=== PATIENT | male | born 1960 | race Caucasian/White ===

== ENCOUNTER 2025-09-08 05:54 | Inpatient (IN) ==
[2025-09-08] MEDS ORDERED: IOPAMIDOL 50 ML BOTTLE IV ONE (05:55)
[2025-09-08] MEDS: IPRATROPIUM/ALBUTEROL 3 ML AMPUL.NEB NEB ONE ×2 (06:15→06:19)
[2025-09-08] MEDS: 0.9 % SODIUM CHLORIDE 1,000 ML IV ONE (06:19)
[2025-09-08] MEDS: ACETAMINOPHEN 1,000 MG/100 ML BAG IV ONE (06:25)
[2025-09-08 06:49] LABS: Basophils # (Auto) 0.01 K/mcL (0.00-0.30); Basophils % (Auto) 0.1 % (0.0-2.0); Eosinophils # (Auto) 0.11 K/mcL (0.00-0.70); Eosinophils % (Auto) 0.7 % (0.0-7.0); Hematocrit 49.6 % (40.1-51.0); Hemoglobin 15.5 g/dL (13.7-17.5); Lymphocytes # (Auto) 1.51 K/mcL (1.50-4.80); Lymphocytes % (Auto) 10.2 % (15.5-49.0); Mean Corpuscular HGB Conc 31.3 g/dL (31.0-36.0); Monocytes # (Auto) 0.36 K/mcL (0.10-0.90); Monocytes % (Auto) 2.4 % (1.0-12.0); Neutrophils % (Auto) 86.4 % (38.0-78.0); Platelet Count 216 K/mcL (140-440); RBC 6.00 M/mcL (4.63-6.08); WBC 14.8 K/mcL (4.5-11.0)
[2025-09-08 06:53] LABS: ALT/SGPT 18 U/L (<40); AST/SGOT 21 U/L (<40); Albumin 4.1 gm/dL (3.2-5.2); Albumin/Globulin Ratio 1.5 (1.0-2.3); Alkaline Phosphatase 77 U/L (39-117); Anion Gap 13.0 (8.0-16.0); Bilirubin,Total 0.8 mg/dL (0.1-1.0); Blood Urea Nitrogen 16 mg/dL (8-23); Calcium 9.2 mg/dL (8.6-10.4); Carbon Dioxide 30 mmol/L (22-30); Chloride 95 mmol/L (96-108); Globulin 2.7 gm/dL (2.2-3.7); Glucose 113 mg/dL (70-105); Potassium 3.8 mmol/L (3.3-5.1); Sodium 138 mmol/L (133-145)
[2025-09-08] MEDS: cefTRIAXone 2 GM in DEXTROSE 5% IN WATER 50 ML IV ONE (07:21)
[2025-09-08] MEDS: AZITHROMYCIN 500 MG in DEXTROSE 5% IN WATER 250 ML IV ONE (07:51)
[2025-09-08] MEDS: 0.9 % SODIUM CHLORIDE 2,260 ML IV ONE (07:53)
[2025-09-08] MEDS ORDERED: DEXTROSE 31 GM ORAL.SUSP PO PRN (12:19)
[2025-09-08] MEDS ORDERED: SENNOSIDES 1 TABLET PO PRN (12:19)
[2025-09-08] MEDS ORDERED: POTASSIUM CHLORIDE 40 MEQ in DEXTROSE 5% IN WATER 500 ML IV PRN (12:19)
[2025-09-08] MEDS ORDERED: DEXTROSE 50% 50 ML VIAL IV PRN (12:19)
[2025-09-08] MEDS ORDERED: MAGNESIUM SULFATE 2 GM/50 ML BAG IV PRN (12:19)
[2025-09-08] MEDS ORDERED: ACETAMINOPHEN 325 MG TABLET PO PRN (12:19)
[2025-09-08] MEDS ORDERED: POLYETHYLENE GLYCOL 3350 17 GM PACKET PO PRN (12:19)
[2025-09-08] MEDS ORDERED: POTASSIUM CHLORIDE 20 MEQ TABLET PO PRN ×2 (12:19)
[2025-09-08] MEDS ORDERED: ONDANSETRON 4 MG/2 ML VIAL IV PRN (12:19)
[2025-09-08] MEDS ORDERED: METOCLOPRAMIDE 10 MG/2 ML VIAL IV PRN (12:19)
[2025-09-08] MEDS: INSULIN LISPRO 1 UNIT/0.01 ML UNIT SQ SCH (12:28)
[2025-09-08] MEDS: IPRATROPIUM/ALBUTEROL 3 ML AMPUL.NEB NEB SCH (12:34)
[2025-09-08] MEDS: 0.9 % SODIUM CHLORIDE 10 ML SYRINGE IV SCH (17:52)
[2025-09-08] MEDS: BUDESONIDE 0.5 MG/2 ML AMPUL.NEB NEB SCH (19:18)
[2025-09-08] MEDS: BUDESONIDE 0.5 MG/2 ML AMPUL.NEB ONE (21:14)
[2025-09-08] MEDS: DOCUSATE SODIUM 100 MG CAPSULE PO SCH (21:24)
[2025-09-08] MEDS: PRIMIDONE 50 MG TABLET PO SCH (21:35)
[2025-09-08] MEDS: ENOXAPARIN 40 MG/0.4 ML SYRINGE SQ SCH (21:35)
[2025-09-08] MEDS: CHLORTHALIDONE 25 MG TABLET PO SCH (21:35)
[2025-09-08] MEDS: SIMVASTATIN 20 MG TABLET PO SCH (21:35)
[2025-09-09 06:03] LABS: Basophils # (Auto) 0.01 K/mcL (0.00-0.30); Basophils % (Auto) 0 % (0.0-2.0); Eosinophils # (Auto) 0 K/mcL (0.00-0.70); Eosinophils % (Auto) 0 % (0.0-7.0); Hematocrit 42.6 % (40.1-51.0); Hemoglobin 13.5 g/dL (13.7-17.5); Lymphocytes # (Auto) 0.51 K/mcL (1.50-4.80); Lymphocytes % (Auto) 2.4 % (15.5-49.0); Mean Corpuscular HGB Conc 31.7 g/dL (31.0-36.0); Monocytes # (Auto) 0.27 K/mcL (0.10-0.90); Monocytes % (Auto) 1.3 % (1.0-12.0); Neutrophils % (Auto) 95.9 % (38.0-78.0); Platelet Count 178 K/mcL (140-440); RBC 5.21 M/mcL (4.63-6.08); WBC 21.1 K/mcL (4.5-11.0)
[2025-09-09 06:27] LABS: ALT/SGPT 16 U/L (<40); AST/SGOT 17 U/L (<40); Albumin 3.6 gm/dL (3.2-5.2); Albumin/Globulin Ratio 1.4 (1.0-2.3); Alkaline Phosphatase 60 U/L (39-117); Anion Gap 10.0 (8.0-16.0); Bilirubin,Direct 0.3 mg/dL (<0.3); Bilirubin,Total 0.6 mg/dL (0.1-1.0); Blood Urea Nitrogen 17 mg/dL (8-23); Calcium 8.8 mg/dL (8.6-10.4); Carbon Dioxide 29 mmol/L (22-30); Chloride 97 mmol/L (96-108); Globulin 2.6 gm/dL (2.2-3.7); Glucose 165 mg/dL (70-105); Phosphorous 3.1 mg/dL (2.5-4.5); Potassium 3.1 mmol/L (3.3-5.1); Sodium 136 mmol/L (133-145); Triglycerides 39 mg/dL (<150); Uric Acid 4.8 mg/dL (2.5-8.0)
[2025-09-09] MEDS: IPRATROPIUM/ALBUTEROL 3 ML AMPUL.NEB NEB PRN (08:33)
[2025-09-09] MEDS: METOPROLOL SUCCINATE 50 MG TAB.XL.24H PO SCH (08:48)
[2025-09-09] MEDS: FUROSEMIDE 20 MG TABLET PO SCH (08:49)
[2025-09-09] MEDS: LOSARTAN 50 MG TABLET PO SCH (08:49)
[2025-09-09] MEDS: cefTRIAXone 2 GM in DEXTROSE 5% IN WATER 50 ML IV SCH (09:03)
[2025-09-09] MEDS: AZITHROMYCIN 500 MG in DEXTROSE 5% IN WATER 250 ML IV SCH (09:40)
[2025-09-09 09:43] LABS: Anisocytosis 1+ (None Seen); Microcytosis 1+ (None Seen); Polychromasia 1+ (None Seen); RBC Morphology ABNORMAL (Normal)
[2025-09-10 08:22] VITALS: TEMP 98.4
[2025-09-10 08:40] LABS: Basophils # (Auto) 0.02 K/mcL (0.00-0.30); Basophils % (Auto) 0.2 % (0.0-2.0); Eosinophils # (Auto) 0.02 K/mcL (0.00-0.70); Eosinophils % (Auto) 0.2 % (0.0-7.0); Hematocrit 44.3 % (40.1-51.0); Hemoglobin 13.6 g/dL (13.7-17.5); Lymphocytes # (Auto) 1.22 K/mcL (1.50-4.80); Lymphocytes % (Auto) 9.5 % (15.5-49.0); Mean Corpuscular HGB Conc 30.7 g/dL (31.0-36.0); Monocytes # (Auto) 0.65 K/mcL (0.10-0.90); Monocytes % (Auto) 5.0 % (1.0-12.0); Neutrophils % (Auto) 84.9 % (38.0-78.0); Platelet Count 182 K/mcL (140-440); RBC 5.24 M/mcL (4.63-6.08); WBC 12.9 K/mcL (4.5-11.0)
[2025-09-10 11:46] VITALS: O2SAT 95
[2025-09-10 12:04] LABS: ALT/SGPT 37 U/L (<40); AST/SGOT 35 U/L (<40); Albumin 3.8 gm/dL (3.2-5.2); Albumin/Globulin Ratio 1.4 (1.0-2.3); Alkaline Phosphatase 66 U/L (39-117); Anion Gap 10.0 (8.0-16.0); Bilirubin,Direct 0.3 mg/dL (<0.3); Bilirubin,Total 0.5 mg/dL (0.1-1.0); Blood Urea Nitrogen 15 mg/dL (8-23); Calcium 8.9 mg/dL (8.6-10.4); Carbon Dioxide 31 mmol/L (22-30); Chloride 95 mmol/L (96-108); Globulin 2.8 gm/dL (2.2-3.7); Glucose 126 mg/dL (70-105); Phosphorous 2.2 mg/dL (2.5-4.5); Potassium 3.4 mmol/L (3.3-5.1); Sodium 136 mmol/L (133-145); Triglycerides 132 mg/dL (<150); Uric Acid 5.0 mg/dL (2.5-8.0)
== END 2025-09-10 14:00 | disposition home or self-care (01) | DRG 871 ==
LOC: ED 05:54 → MEDSUR 12:09
PROVIDERS: ADMIT Internal Medicine; ATTEND Internal Medicine